=== PATIENT | female | born 1935 | race Caucasian/White ===

== ENCOUNTER 2018-02-21 10:27 | Emergency (ER) | payer OTHER ==
[~2018-02-21] VITALS: Ht 165.1 cm; Wt 74.8 kg
[~2018-02-21 10:27] MED LIST: HYDROCODONE-AP1 EAC6 PO; IBUPROFEN 800800 M1 PO; NORCO 5-325 TA1 EACH PO; PAXIL20 MG; SIMVASTATIN40 MG; TRAMADOL 50 MG50 MG
[2018-02-21] MEDS ORDERED: MULTIVITAMINS PO (10:37)
[2018-02-21] MEDS ORDERED: TRIAMCINOLONE A80 G2 TOP (11:01)
[2018-02-21 11:34] VITALS: BP 148/62
== END 2018-02-21 11:35 | disposition home or self-care (01) ==
LOC: M.ERS 10:27
DX: L25.5 Unspecified contact dermatitis due to plants, except food (principal); E78.00 Pure hypercholesterolemia, unspecified; Z88.0 Allergy status to penicillin

== ENCOUNTER 2021-09-14 12:34 | Emergency (ER) | payer MEDICARE ==
[~2021-09-14] VITALS: Ht 165.1 cm; Wt 67.6 kg
[~2021-09-14 12:34] MED LIST changes: +MULTIVITAMINS PO; +TRIAMCINOLONE A80 G2 TOP
[2021-09-14] MEDS ORDERED: ADVIL200 M3 PO (13:19)
[2021-09-14 18:00] VITALS: BP 180/66
== END 2021-09-14 18:00 | disposition home or self-care (01) ==
LOC: M.ERS 12:34
DX: M25.552 Pain in left hip (principal); M53.3 Sacrococcygeal disorders, not elsewhere classified; E78.00 Pure hypercholesterolemia, unspecified; Z98.890 Other specified postprocedural states; Z90.710 Acquired absence of both cervix and uterus; Z79.899 Other long term (current) drug therapy; Z88.0 Allergy status to penicillin; W07.XXXA Fall from chair, initial encounter; Y93.89 Activity, other specified; Y92.89 Other specified places as the place of occurrence of the external cause; Y99.8 Other external cause status